=== PATIENT | female | born 2005 | race Caucasian/White ===

== ENCOUNTER 2024-05-12 15:15 | Emergency (ER) | payer BC, OTHER ==
[2024-05-12 16:39] VITALS: TEMP 97.2
--- NOTE | 2024-05-12 16:59 | ERPHSYRPT ---
- History of Present Illness Source: patient Exam Limitations: no limitations Patient Subjective Stated Complaint: pt here for numbness to left side of body while working out today started at 1030 and lasted about 60secs, then she states she had another episode at where her right side of face went numb followed by a headache, she is 19 weeks , and went to see becky today and was checked out Triage Nursing Assessment: pt alert and walked back , oriented, co headache, no injury, resp easy, skin w/d/p. abd soft, moves all ext well, no facial drooping. Timing/Duration: today Severity: mild Associated Symptoms: denies symptoms Allergies/Adverse Reactions: Penicillins Allergy (Verified 05/12/24 16:18) Home Medications: Pnv No.95/Ferrous Fum/Folic AC [ Caplet] 1 each PO DAILY 05/12/24 [History] Hx Tetanus, Diphtheria Vaccination/Date Given: Yes Hx Influenza Vaccination/Date Given: No Hx Pneumococcal Vaccination/Date Given: No Immunizations Up to Date: Yes Travel Risk - International Travel Have you traveled outside of the country in past 3 weeks: No - Emerging Infectious Disease Are you exhibiting symptoms associated with any current EIDs: No - Review of Systems Eyes: No Symptoms Ears, Nose, & Throat: No Symptoms Respiratory: No Symptoms Cardiac: No Symptoms Abdominal/Gastrointestinal: No Symptoms Genitourinary Symptoms: No Symptoms Musculoskeletal: No Symptoms Skin: No Symptoms Neurological: No Symptoms Psychological: No Symptoms Endocrine: No Symptoms Hematologic/Lymphatic: No Symptoms - Past Medical History Pertinent Past Medical History: No Neurological History: No Pertinent History ENT History: No Pertinent History Cardiac History: No Pertinent History Respiratory History: No Pertinent History Endocrine Medical History: No Pertinent History Musculoskeletal History: No Pertinent History GI Medical History: No Pertinent History History: No Pertinent History Psycho-Social History: No Pertinent History Female Reproductive Disorders: No Pertinent History - Past Surgical History Past Surgical History: No - Female History Hx Last Menstrual Period: january 03 Hx Now: Yes Gestational Age: 17 and one - Social History Smoking Status: Never smoker Exposure to second hand smoke: No Drug Use: none - Social Determinants of Health Will the patient participate in the screening: Yes Do you worry about a steady place to live?: No Do you have any problems with any of the following?: No known problems In the past 12 months,have you had to go without utilities?: No Transportation Issues: No Has anyone in your support network made you feel unsafe?: No Have you or anyone in your house had to go without enough: No - Nursing Vital Signs Nursing Vital Signs: Initial Vital Signs Pulse Rate 74 05/12/24 16:14 Respiratory Rate 19 05/12/24 16:14 Blood Pressure 111/69 05/12/24 16:14 O2 Sat by Pulse Oximetry 100 05/12/24 16:14 Pain Scale Pain Intensity 4 - Physical Exam General Appearance: no apparent distress Eye Exam: PERRL/EOMI Ears, Nose, Throat Exam: normal ENT inspection Neck Exam: normal inspection Respiratory Exam: normal breath sounds Cardiovascular Exam: regular rate/rhythm Gastrointestinal/Abdomen Exam: soft, normal bowel sounds Pelvic Exam: deferred Extremity Exam: normal inspection Neurologic Exam: alert, oriented x 3 SpO2: 100 Ordered Tests: Active Orders 24 hr Category Date Time Status CBC W DIFF Stat Lab 05/12/24 16:55 Completed CMP Stat Lab 05/12/24 17:04 Completed UA W/RFX UR CULTURE Stat Lab 05/12/24 16:00 Completed Medication Summary Generic Name Dose Route Start Last Admin Trade Name Freq PRN Reason Stop Dose Admin Sodium Chloride 1,000 mls @ 999 mls/hr 05/12/24 18:40 05/12/24 18:48 Sodium Chloride 0.9% 1000 Ml IV 05/12/24 19:40 999 mls/hr .Q1H1M STA Administration Metoclopramide HCl 10 mg 05/12/24 22:00 05/12/24 18:51 Metoclopramide Hcl 10 Mg/2 Ml Vial IV 06/11/24 21:59 10 mg ACHS CAITLIN Administration Discontinued Medications Generic Name Dose Route Start Last Admin Trade Name Freq PRN Reason Stop Dose Admin Sodium Chloride 1,000 mls @ 999 mls/hr 05/12/24 16:56 05/12/24 17:08 Sodium Chloride 0.9% 1000 Ml IV 05/12/24 17:56 999 mls/hr .Q1H1M STA Administration Sodium Chloride Confirm 05/12/24 17:04 Sodium Chloride 0.9% 1000 Ml Administered 05/12/24 17:05 Dose 1,000 mls @ ud .ROUTE .STK-MED ONE Sodium Chloride Confirm 05/12/24 18:46 Sodium Chloride 0.9% 1000 Ml Administered 05/12/24 18:47 Dose 1,000 mls @ .ROUTE .K-[facility] ONE Lab/Rad Data: Laboratory Result Diagrams 05/12/24 16:55 05/12/24 17:04 Laboratory Results 05/12/24 05/12/24 05/12/24 Range/Units 17:04 16:55 16:00 WBC 11.2 H (3.98-10.04) x10^3/uL RBC 3.65 L (3.93-5.22) x10^6/uL Hgb 11.4 (11.2-15.7) g/dL Hct 32.3 L (34.1-44.9) % MCV 88.5 (79.4-94.8) fL MCH 31.2 (25.6-32.2) pg MCHC 35.3 (32.2-35.5) g/dL RDW 13.4 (11.7-14.4) % Plt Count 194 (182-369) x10^3/uL MPV 9.6 (9.4-12.3) fL Gran % 84.2 H (34.0-71.1) % Immature Gran % (Auto) 0.4 (0.001-0.429) % Nucleat RBC Rel Count 0.0 (0.00-0.2) % Eos # (Auto) 0.02 L (0.04-0.36) x10^3/uL Immature Gran # (Auto) 0.04 H (0.001-0.031) x10^3u/L Absolute Lymphs (auto) 1.07 L (1.18-3.74) x10^3/uL Absolute Monos (auto) 0.58 (0.24-0.86) x10^3/uL Absolute Nucleated RBC 0.00 (0.00-0.012) x10^3u/L Lymphocytes % 9.6 L (19.3-51.7) % Monocytes % 5.2 (4.7-12.5) % Eosinophils % 0.2 L (0.7-5.8) % Basophils % 0.4 (0.1-1.2) % Absolute Granulocytes 9.44 H (1.56-6.13) x10^3/uL Basophils # 0.05 (0.01-0.08) x10^3/uL Sodium 134 L (135-145) mmol/L Potassium 3.5 (3.5-5.1) mmol/L Chloride 104 (98-107) mmol/L Carbon Dioxide 22 (22-30) mmol/L Anion Gap 12.3 (5-15) MEQ/L BUN 5 L (7-17) mg/dL Creatinine 0.59 (0.52-1.04) mg/dL Estimated GFR 132.2 ML/MIN Glucose 82 (74-106) mg/dL Calcium 8.9 (8.4-10.2) mg/dL Total Bilirubin 0.40 (0.2-1.3) mg/dL AST 30 (14-36) U/L ALT 22 (0-35) U/L Alkaline Phosphatase 67 (38-126) U/L Serum Total Protein 6.9 (6.3-8.2) g/dL Albumin 4.0 (3.5-5.0) g/dL Urine Color Yellow (Yellow) Urine Appearance Clear (Clear) Urine pH 6.5 (4.6-8.0) Ur Specific [place] 1.010 (1.005-1.030) Urine Protein Negative (Negative) Urine Glucose (UA) Negative (Negative) mg/dL Urine Ketones Negative (Negative) Urine Blood Negative (Negative) Urine Nitrite Negative (Negative) Urine Bilirubin Negative (Negative) Urine Urobilinogen 0.2 (0.2) mg/dL Ur Leukocyte Esterase Negative (Negative) U Hyaline Cast (Auto) NONE SEEN (0-2) /LPF Urine Microscopic RBC 0-2 (0-5) /HPF Urine Microscopic WBC 0-2 (0-5) /HPF Ur Epithelial Cells None Seen (None Seen) /HPF Urine Bacteria Rare A (None Seen) /HPF Urine Culture Reflexed NO (NO) Medical Desision Making - Discussion of managment Reviewed:: Need for additional workup Agreed on:: need for follow-up - Departure Clinical Impression: Dehydration, Nausea & vomiting Condition: Stable Critical Care Time: No Referrals: GABI ADAM [Primary Care Provider] - Follow up/PCP as directed Prescriptions: Ondansetron ODT 4 MG [Zofran Odt 4 mg] 4 mg PO Q6H PRN PRN #10 tablet PRN Reason: Vomiting
[2024-05-12] MEDS ORDERED: Sodium Chloride 0.9% 1000 ML 1,000 ML ONE ×2 (17:04→18:46)
[2024-05-12 17:07] LABS: Absolute Neutrophil Ct (ANC) 9.44 x10^3/uL (1.56-6.13); BASOPHIL % 0.4 % (0.1-1.2); Basophil (Absolute #) 0.05 x10^3/uL (0.01-0.08); Eosinophil % 0.2 % (0.7-5.8); Eosinophil (Absolute #) 0.02 x10^3/uL (0.04-0.36); Hematocrit 32.3 % (34.1-44.9); Hemoglobin 11.4 g/dL (11.2-15.7); IMMATURE GRAN # 0.04 x10^3u/L (0.001-0.031); IMMATURE GRAN % 0.4 % (0.001-0.429); Lymphocyte (Absolute #) 1.07 x10^3/uL (1.18-3.74); Lymphocytes % 9.6 % (19.3-51.7); Mean Cell Volume 88.5 fL (79.4-94.8); Mean Corpuscular Hemoglobin 31.2 pg (25.6-32.2); Mean Corpuscular Hgb Concent. 35.3 g/dL (32.2-35.5); Mean Platelet Volume 9.6 fL (9.4-12.3); Monocyte (Absolute #) 0.58 x10^3/uL (0.24-0.86); Monocytes % 5.2 % (4.7-12.5); Neutrophil % 84.2 % (34.0-71.1); Platelet Count 194 x10^3/uL (182-369); Red Blood Count 3.65 x10^6/uL (3.93-5.22); Red Cell Distribution Width 13.4 % (11.7-14.4); White Blood Count 11.2 x10^3/uL (3.98-10.04)
[2024-05-12] MEDS: Sodium Chloride 0.9% 1000 ML 1,000 ML IV STA ×2 (17:08→18:48)
[2024-05-12 17:10] LABS: Appearance Clear (Clear); Bacteria Rare /HPF (None Seen); Bilirubin Negative (Negative); Blood Negative (Negative); Epithelial Cells None Seen /HPF (None Seen); Glucose, Urine Negative (Negative); Hyaline Casts NONE SEEN /LPF (0-2); Ketones Negative (Negative); Leukocyte Esterase Negative (Negative); Nitrite Negative (Negative); Ph 6.5 (4.6-8.0); Protein,Urine Dip Negative (Negative); RBC 0-2 /HPF (0-5); Urobilinogen 0.2 mg/dL (0.2); WBC 0-2 /HPF (0-5)
[2024-05-12 17:23] LABS: ADD URINE CULTURE? NO (NO)
[2024-05-12 18:32] VITALS: BP 81/58; PULSE 80; RESP 13
[2024-05-12] MEDS ORDERED: Reglan 10 MG/2 ML ONE ×2 (18:45→18:49)
[2024-05-12 18:50] LABS: ANION GAP 12.3 MEQ/L (5-15); BILIRUBIN,TOTAL 0.4 mg/dL (0.2-1.3); Calcium 8.9 mg/dL (8.4-10.2); Creatinine 1 0.59 mg/dL (0.52-1.04); EST GLOMERULAR FILTRATION RATE 132.2 ML/MIN; Potassium 3.5 mmol/L (3.5-5.1); Total Protein 6.9 g/dL (6.3-8.2)
[2024-05-12] MEDS: Reglan 10 MG/2 ML IV SCH (18:51)
[2024-05-12 19:09] VITALS: O2SAT 100
== END 2024-05-12 19:25 | disposition left against medical advice (07) ==
LOC: ED 15:15
DX: E86.0 Dehydration (principal); R11.2 Nausea with vomiting, unspecified; R20.1 Hypoesthesia of skin; Z33.1 Pregnant state, incidental
CPT/HCPCS: 36000; 36415; 80053; 81001; 85025; 93005; 96360; 96361; 96374; 99284

== ENCOUNTER 2024-09-27 08:17 | Inpatient (IN) | payer BC, OTHER ==
[2024-09-27] MEDS ORDERED: Zofran 4 MG/2 ML VIAL IV PRN (09:01)
[2024-09-27 10:40] LABS: BASOPHIL % 0.4 % (0.1-1.2); Basophil (Absolute #) 0.05 x10^3/uL (0.01-0.08); Eosinophil % 0.3 % (0.7-5.8); Eosinophil (Absolute #) 0.04 x10^3/uL (0.04-0.36); Hematocrit 34.8 % (34.1-44.9); Hemoglobin 12.4 g/dL (11.2-15.7); IMMATURE GRAN % 0.8 % (0.001-0.429); Lymphocyte (Absolute #) 1.47 x10^3/uL (1.18-3.74); Lymphocytes % 11.9 % (19.3-51.7); Mean Cell Volume 88.5 fL (79.4-94.8); Mean Corpuscular Hemoglobin 31.6 pg (25.6-32.2); Mean Corpuscular Hgb Concent. 35.6 g/dL (32.2-35.5); Mean Platelet Volume 10.1 fL (9.4-12.3); Monocyte (Absolute #) 0.65 x10^3/uL (0.24-0.86); Monocytes % 5.3 % (4.7-12.5); Neutrophil % 81.3 % (34.0-71.1); Platelet Count 205 x10^3/uL (182-369); Red Blood Count 3.93 x10^6/uL (3.93-5.22); Red Cell Distribution Width 12.5 % (11.7-14.4); White Blood Count 12.3 x10^3/uL (3.98-10.04)
[2024-09-27 11:08] LABS: Amphetamine,Urine NEGATIVE (NEGATIVE); Barbiturate,Urine NEGATIVE (NEGATIVE); Benzodiazepine,Urine NEGATIVE (NEGATIVE); Cocaine,Urine NEGATIVE (NEGATIVE); Methadone,Urine NEGATIVE (NEGATIVE); Opiate,Urine NEGATIVE (NEGATIVE); PCP,Urine NEGATIVE (NEGATIVE); THC,Urine NEGATIVE (NEGATIVE)
[2024-09-27 11:36] LABS: ABO TYPING O; Antibody Screen NEGATIVE (NEGATIVE); RH TYPING POSITIVE
[2024-09-27] MEDS: Lactated Ringers 1,000 ML IV SCH (23:51)
[2024-09-28] MEDS: FENTANYL 2 MCG-BUPIV 0.125%-NS 250 ML Epidur 250 ML EPIDURAL SCH (07:25)
[2024-09-28] MEDS: PITOCIN 30 UNITS/ LR 500 ML 30 UNITS/500 ML PLAST..BAG IV SCH (07:36)
[2024-09-28] MEDS ORDERED: Ephedrine Sulfate 50 MG/ML IV PRN (08:00)
[2024-09-28] MEDS: TUCKS TP PRN (18:50)
[2024-09-28] MEDS: Dermoplast Spray TP PRN (18:50)
[2024-09-28] MEDS: MOTRIN 400 MG PO PRN (20:30)
[2024-09-29] MEDS: Docusate Sodium 100 MG PO SCH (00:10)
[2024-09-29] MEDS: PITOCIN 30 UNITS/ LR 500 ML 30 UNITS/500 ML PLAST..BAG IV SCH (01:04)
[2024-09-29] MEDS ORDERED: CORTISONE 1% CREAM ONE (04:23)
[2024-09-29] MEDS: CORTISONE 1% CREAM TP PRN (04:26)
[2024-09-29 04:29] LABS: Absolute Neutrophil Ct (ANC) 16.83 x10^3/uL (1.56-6.13); BASOPHIL % 0.4 % (0.1-1.2); Basophil (Absolute #) 0.08 x10^3/uL (0.01-0.08); Eosinophil % 0.6 % (0.7-5.8); Eosinophil (Absolute #) 0.13 x10^3/uL (0.04-0.36); Hematocrit 35.5 % (34.1-44.9); Hemoglobin 12.3 g/dL (11.2-15.7); IMMATURE GRAN # 0.16 x10^3u/L (0.001-0.031); IMMATURE GRAN % 0.7 % (0.001-0.429); Lymphocyte (Absolute #) 3.49 x10^3/uL (1.18-3.74); Lymphocytes % 15.9 % (19.3-51.7); Mean Cell Volume 90.6 fL (79.4-94.8); Mean Corpuscular Hemoglobin 31.4 pg (25.6-32.2); Mean Corpuscular Hgb Concent. 34.6 g/dL (32.2-35.5); Mean Platelet Volume 10.2 fL (9.4-12.3); Monocyte (Absolute #) 1.32 x10^3/uL (0.24-0.86); Neutrophil % 76.4 % (34.0-71.1); Platelet Count 192 x10^3/uL (182-369); Red Blood Count 3.92 x10^6/uL (3.93-5.22); Red Cell Distribution Width 12.9 % (11.7-14.4)
[2024-09-29] MEDS: FERREX 150 PO SCH (10:20)
--- NOTE | 2024-09-29 10:32 | PCM.NOTE ---
Date and Time: 09/29/24 1029 Subjective Assessment: ppd 1 sp pt resting in bed and doing well at this time able to ambulate and tolerate diet vss afebrile abd; soft uterus; firm lochia; mild hgb 12 a/p sp ppd 1 anticipate discharge tomorrow Objective Data Vital Signs: Vital Signs - 24 hr Temp Pulse Resp BP BP Pulse Ox 09/29/24 08:00 97.7 F 68 16 136/86 09/29/24 01:44 98.3 F 57 L 16 115/58 98 09/28/24 18:45 98.0 F 96 H 18 131/68 98 09/28/24 18:15 98.0 F 99 H 18 119/62 99 09/28/24 17:45 98.0 F 100 H 18 121/79 100 09/28/24 17:30 98.0 F 84 18 122/62 100 09/28/24 17:15 98.0 F 99 H 18 126/67 99 09/28/24 17:00 98.0 F 84 18 121/60 100 09/28/24 16:45 98.0 F 79 18 119/59 100 09/28/24 16:31 97.8 F 83 18 133/61 99 09/28/24 16:15 97.8 F 81 18 124/80 99 09/28/24 16:00 97.8 F 64 18 113/57 99 09/28/24 15:45 97.8 F 66 18 125/75 99 09/28/24 15:30 97.8 F 63 18 120/74 99 09/28/24 15:15 98.7 F 62 18 120/74 99 09/28/24 15:00 98.7 F 69 18 127/81 99 09/28/24 14:45 98.7 F 72 18 120/69 99 09/28/24 14:30 98.7 F 85 18 113/57 99 09/28/24 14:15 98.7 F 77 18 130/75 99 09/28/24 14:00 98.7 F 74 18 115/58 99 09/28/24 13:43 98.7 F 67 18 130/81 99 09/28/24 13:15 98.7 F 81 18 141/90 99 09/28/24 13:00 98.7 F 73 18 124/69 99 09/28/24 12:45 98.7 F 66 18 128/78 99 09/28/24 12:30 98.7 F 18 99 09/28/24 12:15 98.7 F 69 18 119/57 99 09/28/24 12:00 98.7 F 71 18 114/59 98 09/28/24 11:45 98.7 F 18 98 09/28/24 11:30 98.7 F 18 98 09/28/24 11:15 98.7 F 70 18 113/67 98 09/28/24 11:00 98.7 F 76 18 112/68 99 09/28/24 10:45 97.5 F 72 18 118/65 99 09/28/24 10:30 97.5 F 70 18 112/72 98 Pain Assessment - Last Documented Pain Intensity [Lower Anterior 0 /Posterior] Pain Intensity 2 Pain Scale Used 0-10 Pain Scale Intake and Output: Intake & Output 09/26/24 09/27/24 09/28/24 09/29/24 11:59 11:59 11:59 11:59 Intake Total 9000 1400 Output Total 1000 650 Balance 8000 750 Weight 81.647 kg Lab Results: Lab Results-Last 24 Hours 09/29/24 Range/Units 04:28 WBC 22.0 H (3.98-10.04) x10^3/uL RBC 3.92 L (3.93-5.22) x10^6/uL Hgb 12.3 (11.2-15.7) g/dL Hct 35.5 (34.1-44.9) % MCV 90.6 (79.4-94.8) fL MCH 31.4 (25.6-32.2) pg MCHC 34.6 (32.2-35.5) g/dL RDW 12.9 (11.7-14.4) % Plt Count 192 (182-369) x10^3/uL MPV 10.2 (9.4-12.3) fL Gran % 76.4 H (34.0-71.1) % Immature Gran % (Auto) 0.7 H (0.001-0.429) % Nucleat RBC Rel Count 0.0 (0.00-0.2) % Eos # (Auto) 0.13 (0.04-0.36) x10^3/uL Immature Gran # (Auto) 0.16 H (0.001-0.031) x10^3u/L Absolute Lymphs (auto) 3.49 (1.18-3.74) x10^3/uL Absolute Monos (auto) 1.32 H (0.24-0.86) x10^3/uL Absolute Nucleated RBC 0.00 (0.00-0.012) x10^3u/L Lymphocytes % 15.9 L (19.3-51.7) % Monocytes % 6.0 (4.7-12.5) % Eosinophils % 0.6 L (0.7-5.8) % Basophils % 0.4 (0.1-1.2) % Absolute Granulocytes 16.83 H (1.56-6.13) x10^3/uL Basophils # 0.08 (0.01-0.08) x10^3/uL Assessment/Plan (1) Vaginal delivery Current Visit: Yes Status: Acute Code(s): O80 - ENCOUNTER FOR FULL-TERM UNCOMPLICATED DELIVERY
[2024-09-29] MEDS: TYLENOL EXTRA STRENGTH 500 MG PO PRN (20:00)
[2024-09-29 21:08] VITALS: O2SAT 99
[2024-09-30 05:37] LABS: Absolute Neutrophil Ct (ANC) 10.11 x10^3/uL (1.56-6.13); BASOPHIL % 0.6 % (0.1-1.2); Basophil (Absolute #) 0.09 x10^3/uL (0.01-0.08); Eosinophil % 1.3 % (0.7-5.8); Eosinophil (Absolute #) 0.19 x10^3/uL (0.04-0.36); Hematocrit 31.3 % (34.1-44.9); Hemoglobin 10.8 g/dL (11.2-15.7); IMMATURE GRAN # 0.15 x10^3u/L (0.001-0.031); Lymphocytes % 18.8 % (19.3-51.7); Mean Corpuscular Hemoglobin 31.4 pg (25.6-32.2); Mean Corpuscular Hgb Concent. 34.5 g/dL (32.2-35.5); Mean Platelet Volume 10.8 fL (9.4-12.3); Monocyte (Absolute #) 1.11 x10^3/uL (0.24-0.86); Monocytes % 7.7 % (4.7-12.5); Neutrophil % 70.6 % (34.0-71.1); Platelet Count 179 x10^3/uL (182-369); Red Blood Count 3.44 x10^6/uL (3.93-5.22); Red Cell Distribution Width 13.1 % (11.7-14.4); White Blood Count 14.4 x10^3/uL (3.98-10.04)
[2024-09-30 07:14] LABS: RPR Non Reactive (Non Reactive)
--- NOTE | 2024-09-30 08:01 | PCM.NOTE ---
Date and Time: 09/30/24 0800 Subjective Assessment: ppd 2 sp pt resting in bed and doing well without complaints vss afebrile abd; soft uterus; firm lochia; mild hgb; 10 a/p sp ppd 2 dc home today fu office 3 wks Objective Data Vital Signs: Vital Signs - 24 hr Temp Pulse Resp BP Pulse Ox 09/30/24 02:00 97.5 F 73 18 125/83 99 09/29/24 20:00 98.0 F 77 18 126/66 99 09/29/24 14:00 97.7 F 76 16 135/82 Pain Assessment - Last Documented Pain Intensity [Lower Anterior 0 /Posterior] Pain Intensity 0 Pain Scale Used 0-10 Pain Scale Intake and Output: Intake & Output 09/27/24 09/28/24 09/29/24 09/30/24 11:59 11:59 11:59 11:59 Intake Total 9000 1400 500 Output Total 1000 650 Balance 8000 750 500 Weight 81.647 kg Lab Results: Lab Results-Last 24 Hours 09/27/24 09/30/24 Range/Units 10:30 04:15 WBC 14.4 H (3.98-10.04) x10^3/uL RBC 3.44 L (3.93-5.22) x10^6/uL Hgb 10.8 L (11.2-15.7) g/dL Hct 31.3 L (34.1-44.9) % MCV 91.0 (79.4-94.8) fL MCH 31.4 (25.6-32.2) pg MCHC 34.5 (32.2-35.5) g/dL RDW 13.1 (11.7-14.4) % Plt Count 179 L (182-369) x10^3/uL MPV 10.8 (9.4-12.3) fL Gran % 70.6 (34.0-71.1) % Immature Gran % (Auto) 1.0 H (0.001-0.429) % Nucleat RBC Rel Count 0.0 (0.00-0.2) % Eos # (Auto) 0.19 (0.04-0.36) x10^3/uL Immature Gran # (Auto) 0.15 H (0.001-0.031) x10^3u/L Absolute Lymphs (auto) 2.70 (1.18-3.74) x10^3/uL Absolute Monos (auto) 1.11 H (0.24-0.86) x10^3/uL Absolute Nucleated RBC 0.00 (0.00-0.012) x10^3u/L Lymphocytes % 18.8 L (19.3-51.7) % Monocytes % 7.7 (4.7-12.5) % Eosinophils % 1.3 (0.7-5.8) % Basophils % 0.6 (0.1-1.2) % Absolute Granulocytes 10.11 H (1.56-6.13) x10^3/uL Basophils # 0.09 H (0.01-0.08) x10^3/uL RPR Non Reactive (Non Reactive) Assessment/Plan (1) Vaginal delivery Current Visit: Yes Status: Acute Code(s): O80 - ENCOUNTER FOR FULL-TERM UNCOMPLICATED DELIVERY
--- NOTE | 2024-09-30 08:04 | PCM.DS ---
Discharge Summary Date of Admission: 09/27/24 09:40 Admitting Physician: JUAN JOHN DO Consults: Consults on Case 09/28/24 18:15 Navigation ONCE Primary Care Provider: GABI ADAM Allergies Allergies Penicillins Allergy (Verified 09/27/24 12:31) Hospital Summary - Hospital Course Hospital Course: pt admitted on sep 27 for cytotec induction at 39 wks gestation and delivered live baby boy without complication on sep 28. pt noted having a small periurethral tear during delivery and repaired with 2-0 chromic suture. during period did very well able to ambulate and tolerate diet. stable hgb at 10 today and at this time stable for discharge. all questions answered to her satisfaction and advised to fu in office in 3 wks. - Vitals & Intake/Output Vital Signs: Vital Signs Temperature 97.5 F 09/30/24 02:00 Pulse Rate 73 09/30/24 02:00 Respiratory Rate 18 09/30/24 02:00 Blood Pressure 125/83 09/30/24 02:00 O2 Sat by Pulse Oximetry 99 09/30/24 02:00 Intake & Output: Intake & Output 09/27/24 09/28/24 09/29/24 09/30/24 11:59 11:59 11:59 11:59 Intake Total 9000 1400 500 Output Total 1000 650 Balance 8000 750 500 Weight 81.647 kg - Lab Result Diagrams: 09/30/24 04:15 Lab Results-Last 24 Hrs: Lab Results-Last 24 Hours 09/27/24 09/30/24 Range/Units 10:30 04:15 WBC 14.4 H (3.98-10.04) x10^3/uL RBC 3.44 L (3.93-5.22) x10^6/uL Hgb 10.8 L (11.2-15.7) g/dL Hct 31.3 L (34.1-44.9) % MCV 91.0 (79.4-94.8) fL MCH 31.4 (25.6-32.2) pg MCHC 34.5 (32.2-35.5) g/dL RDW 13.1 (11.7-14.4) % Plt Count 179 L (182-369) x10^3/uL MPV 10.8 (9.4-12.3) fL Gran % 70.6 (34.0-71.1) % Immature Gran % (Auto) 1.0 H (0.001-0.429) % Nucleat RBC Rel Count 0.0 (0.00-0.2) % Eos # (Auto) 0.19 (0.04-0.36) x10^3/uL Immature Gran # (Auto) 0.15 H (0.001-0.031) x10^3u/L Absolute Lymphs (auto) 2.70 (1.18-3.74) x10^3/uL Absolute Monos (auto) 1.11 H (0.24-0.86) x10^3/uL Absolute Nucleated RBC 0.00 (0.00-0.012) x10^3u/L Lymphocytes % 18.8 L (19.3-51.7) % Monocytes % 7.7 (4.7-12.5) % Eosinophils % 1.3 (0.7-5.8) % Basophils % 0.6 (0.1-1.2) % Absolute Granulocytes 10.11 H (1.56-6.13) x10^3/uL Basophils # 0.09 H (0.01-0.08) x10^3/uL RPR Non Reactive (Non Reactive) Final Diagnosis/Problem List - Final Discharge Diagnosis/Problem (1) Vaginal delivery Current Visit: Yes Status: Acute Code(s): O80 - ENCOUNTER FOR FULL-TERM UNCOMPLICATED DELIVERY - Discharge Disposition: Home, Self-Care Condition: Stable Prescriptions: No Action Pnv No.95/Ferrous Fum/Folic AC [ Caplet] 1 each PO DAILY Ondansetron ODT 4 MG [Zofran Odt 4 mg] 4 mg PO Q6H PRN PRN #10 tablet PRN Reason: Vomiting Follow up with: GABI ADAM [Primary Care Provider] - JUAN JOHN DO [ACTIVE STAFF] - 3 weeks
[2024-09-30] MEDS: Adacel Vial IM ONE (08:45)
[2024-09-30 09:41] VITALS: BP 128/74; PULSE 94; RESP 14; TEMP 98.2
== END 2024-09-30 12:30 | disposition home or self-care (01) | DRG 807 ==
LOC: OB 09:40
PROVIDERS: ADMIT Obstetrics & Gynecology; ATTEND Obstetrics & Gynecology
PROC: 10E0XZZ Delivery of Products of Conception, External Approach (ICD-10-PCS; principal; 2024-09-28)
PROC: 0UQMXZZ Repair Vulva, External Approach (ICD-10-PCS; 2024-09-28)
DX: O71.82 Other specified trauma to perineum and vulva (principal); Z37.0 Single live birth; Z3A.39 39 weeks gestation of pregnancy
CPT/HCPCS: 36415; 59400; 80307; 85025; 86592; 86850; 86900; 86901; 90715; J2590; A9270-GY

== ENCOUNTER 2025-01-11 10:53 | Emergency (ER) | payer BC, OTHER ==
[2025-01-11 11:05] VITALS: TEMP 97.1
--- NOTE | 2025-01-11 11:22 | ERPHSYRPT ---
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 Patient denies any fever chills blood in the stool or urine abdominal distention shortness of breath headache. Patient is presently on her menstrual period. Patient has a given of 3 months ago. Timing/Duration: today Activities at Onset: none Quality: cramping Abdominal Pain Onset Location: epigastric Pain Radiation: no radiation Severity of Pain-Max: moderate Severity of Pain-Current: mild Modifying Factors: Improves With: nothing Associated Symptoms: denies symptoms Previous symptoms: no prior history Body Map: 1 - pain Allergies/Adverse Reactions: Penicillins Allergy (Verified 01/11/25 11:05) Home Medications: No Reportable Medications [No Reported Medications] 01/11/25 [History] Hx Tetanus, Diphtheria Vaccination/Date Given: Yes Hx Influenza Vaccination/Date Given: No Hx Pneumococcal Vaccination/Date Given: No Travel Risk - International Travel Have you traveled outside of the country in past 3 weeks: No - Emerging Infectious Disease Are you exhibiting symptoms associated with any current EIDs: Yes Symptoms: Abdominal Pain, Vomitting - Review of Systems Constitutional: No Fever, No Chills Eyes: No Symptoms Ears, Nose, & Throat: No Symptoms Respiratory: No Cough, No Dyspnea Cardiac: No Chest Pain, No Edema, No Syncope Abdominal/Gastrointestinal: Abdominal Pain, No Nausea, No Vomiting, No Diarrhea Genitourinary Symptoms: Vaginal Bleeding (presently on her menstrual period), No Dysuria, No Musculoskeletal: No Back Pain, No Neck Pain Skin: No Rash Neurological: No Dizziness, No Focal Weakness, No Sensory Changes Psychological: No Symptoms Endocrine: No Symptoms All Other Systems: Reviewed and Negative - Past Medical History Pertinent Past Medical History: No Neurological History: No Pertinent History ENT History: No Pertinent History Cardiac History: No Pertinent History Respiratory History: No Pertinent History Endocrine Medical History: No Pertinent History Musculoskeletal History: No Pertinent History GI Medical History: No Pertinent History History: No Pertinent History Psycho-Social History: No Pertinent History Female Reproductive Disorders: No Pertinent History - Past Surgical History Past Surgical History: No Neuro Surgical History: No Pertinent History Cardiac: No Pertinent History Respiratory: No Pertinent History Gastrointestinal: No Pertinent History Genitourinary: No Pertinent History Musculoskeletal: No Pertinent History Female Surgical History: No Pertinent History - Female History Hx Last Menstrual Period: january 03 Hx Now: No - Social History Smoking Status: Never smoker Exposure to second hand smoke: No Drug Use: none - Social Determinants of Health Will the patient participate in the screening: Yes Do you worry about a steady place to live?: No Do you have any problems with any of the following?: No known problems In the past 12 months,have you had to go without utilities?: No Transportation Issues: No Has anyone in your support network made you feel unsafe?: No Have you or anyone in your house had to go w/o enough food: No - Nursing Vital Signs Nursing Vital Signs: Initial Vital Signs Temperature 97.1 F 01/11/25 10:57 Pulse Rate 81 01/11/25 10:57 Blood Pressure 118/68 01/11/25 10:57 O2 Sat by Pulse Oximetry 100 01/11/25 10:57 Pain Scale Pain Intensity 7 - Physical Exam General Appearance: no apparent distress, alert Eye Exam: PERRL/EOMI, eyes nml inspection Ears, Nose, Throat Exam: normal ENT inspection, pharynx normal, moist mucous membranes Neck Exam: normal inspection, non-tender, supple, full range of motion Respiratory Exam: normal breath sounds, lungs clear, No respiratory distress Cardiovascular Exam: regular rate/rhythm, normal heart sounds Gastrointestinal/Abdomen Exam: soft, normal bowel sounds, No tenderness, No distention, No mass, No guarding, No rebound Pelvic Exam: not done Rectal Exam: deferred Back Exam: normal inspection, normal range of motion, No CVA tenderness, No vertebral tenderness Extremity Exam: normal inspection, normal range of motion, pelvis stable Neurologic Exam: alert, oriented x 3, cooperative, normal mood/affect, nml cerebellar function, sensation nml, No motor deficits Skin Exam: normal color, warm, dry SpO2 Interpretation: normal SpO2: 100 O2 Delivery: Room Air - Course Nursing assessment & vital signs reviewed: Yes Ordered Tests: Active Orders 24 hr Category Date Time Status AMYLASE Stat Lab 01/11/25 11:42 Completed CBC W DIFF Stat Lab 01/11/25 11:42 Completed CMP Stat Lab 01/11/25 11:42 Completed HCG QUALITATIVE, SERUM Stat Lab 01/11/25 11:42 Completed LIPASE Stat Lab 01/11/25 11:42 Completed UA W/RFX UR CULTURE Stat Lab 01/11/25 11:42 Completed Urine Triage Profile Stat Lab 01/11/25 11:42 Completed Lab/Rad Data: Laboratory Result Diagrams 01/11/25 11:42 01/11/25 11:42 Laboratory Results 01/11/25 01/11/25 01/11/25 Range/Units 11:42 11:42 11:42 WBC 6.5 (3.98-10.04) x10^3/uL RBC 4.32 (3.93-5.22) x10^6/uL Hgb 12.8 (11.2-15.7) g/dL Hct 37.2 (34.1-44.9) % MCV 86.1 (79.4-94.8) fL MCH 29.6 (25.6-32.2) pg MCHC 34.4 (32.2-35.5) g/dL RDW 12.2 (11.7-14.4) % Plt Count 194 (182-369) x10^3/uL MPV 9.6 (9.4-12.3) fL Gran % 80.4 H (34.0-71.1) % Immature Gran % (Auto) 0.3 (0.001-0.429) % Nucleat RBC Rel Count 0.0 (0.00-0.2) % Eos # (Auto) 0.15 (0.04-0.36) x10^3/uL Immature Gran # (Auto) 0.02 (0.001-0.031) x10^3u/L Absolute Lymphs (auto) 0.61 L (1.18-3.74) x10^3/uL Absolute Monos (auto) 0.44 (0.24-0.86) x10^3/uL Absolute Nucleated RBC 0.00 (0.00-0.012) x10^3u/L Lymphocytes % 9.4 L (19.3-51.7) % Monocytes % 6.8 (4.7-12.5) % Eosinophils % 2.3 (0.7-5.8) % Basophils % 0.8 (0.1-1.2) % Absolute Granulocytes 5.19 (1.56-6.13) x10^3/uL Basophils # 0.05 (0.01-0.08) x10^3/uL Sodium 138 (135-145) mmol/L Potassium 3.9 (3.5-5.1) mmol/L Chloride 106 (98-107) mmol/L Carbon Dioxide 21 L (22-30) mmol/L Anion Gap 14.9 (5-15) MEQ/L BUN 10 (7-17) mg/dL Creatinine 0.77 (0.52-1.04) mg/dL Estimated GFR 112.5 ML/MIN Glucose 90 (74-106) mg/dL Calcium 8.7 (8.4-10.2) mg/dL Total Bilirubin 0.60 (0.2-1.3) mg/dL AST 31 (14-36) U/L ALT 17 (0-35) U/L Alkaline Phosphatase 76 (38-126) U/L Serum Total Protein 6.7 (6.3-8.2) g/dL Albumin 4.2 (3.5-5.0) g/dL Amylase 75 (30-110) U/L Lipase 207 (23-300) U/L Serum HCG, Qual NEGATIVE (NEGATIVE) Urine Color (Yellow) Urine Appearance (Clear) Urine pH (4.6-8.0) Ur Specific [place] (1.005-1.030) Urine Protein (Negative) Urine Glucose (UA) (Negative) mg/dL Urine Ketones (Negative) Urine Blood (Negative) Urine Nitrite (Negative) Urine Bilirubin (Negative) Urine Urobilinogen (0.2) mg/dL Ur Leukocyte Esterase (Negative) U Hyaline Cast (Auto) (0-2) /LPF Urine Microscopic RBC (0-5) /HPF Urine Microscopic WBC (0-5) /HPF Ur Epithelial Cells (None Seen) /HPF Urine Bacteria (None Seen) /HPF Urine Culture Reflexed (NO) Urine Opiates Level (NEGATIVE) Ur Methadone (NEGATIVE) Urine Barbiturates (NEGATIVE) Ur Phencyclidine (PCP) (NEGATIVE) Urine Amphetamine (NEGATIVE) U Benzodiazepine Level (NEGATIVE) Urine Cocaine (NEGATIVE) Urine Marijuana (THC) (NEGATIVE) 01/11/25 01/11/25 Range/Units 11:42 11:42 WBC (3.98-10.04) x10^3/uL RBC (3.93-5.22) x10^6/uL Hgb (11.2-15.7) g/dL Hct (34.1-44.9) % MCV (79.4-94.8) fL MCH (25.6-32.2) pg MCHC (32.2-35.5) g/dL RDW (11.7-14.4) % Plt Count (182-369) x10^3/uL MPV (9.4-12.3) fL Gran % (34.0-71.1) % Immature Gran % (Auto) (0.001-0.429) % Nucleat RBC Rel Count (0.00-0.2) % Eos # (Auto) (0.04-0.36) x10^3/uL Immature Gran # (Auto) (0.001-0.031) x10^3u/L Absolute Lymphs (auto) (1.18-3.74) x10^3/uL Absolute Monos (auto) (0.24-0.86) x10^3/uL Absolute Nucleated RBC (0.00-0.012) x10^3u/L Lymphocytes % (19.3-51.7) % Monocytes % (4.7-12.5) % Eosinophils % (0.7-5.8) % Basophils % (0.1-1.2) % Absolute Granulocytes (1.56-6.13) x10^3/uL Basophils # (0.01-0.08) x10^3/uL Sodium (135-145) mmol/L Potassium (3.5-5.1) mmol/L Chloride (98-107) mmol/L Carbon Dioxide (22-30) mmol/L Anion Gap (5-15) MEQ/L BUN (7-17) mg/dL Creatinine (0.52-1.04) mg/dL Estimated GFR ML/MIN Glucose (74-106) mg/dL Calcium (8.4-10.2) mg/dL Total Bilirubin (0.2-1.3) mg/dL AST (14-36) U/L ALT (0-35) U/L Alkaline Phosphatase (38-126) U/L Serum Total Protein (6.3-8.2) g/dL Albumin (3.5-5.0) g/dL Amylase (30-110) U/L Lipase (23-300) U/L Serum HCG, Qual (NEGATIVE) Urine Color Yellow (Yellow) Urine Appearance Clear (Clear) Urine pH 6.0 (4.6-8.0) Ur Specific [place] 1.010 (1.005-1.030) Urine Protein Negative (Negative) Urine Glucose (UA) Negative (Negative) mg/dL Urine Ketones Negative (Negative) Urine Blood Trace (Negative) Urine Nitrite Negative (Negative) Urine Bilirubin Negative (Negative) Urine Urobilinogen 1.0 A (0.2) mg/dL Ur Leukocyte Esterase Negative (Negative) U Hyaline Cast (Auto) NONE SEEN (0-2) /LPF Urine Microscopic RBC 0-2 (0-5) /HPF Urine Microscopic WBC 0-2 (0-5) /HPF Ur Epithelial Cells None Seen (None Seen) /HPF Urine Bacteria None Seen (None Seen) /HPF Urine Culture Reflexed NO (NO) Urine Opiates Level NEGATIVE (NEGATIVE) Ur Methadone NEGATIVE (NEGATIVE) Urine Barbiturates NEGATIVE (NEGATIVE) Ur Phencyclidine (PCP) NEGATIVE (NEGATIVE) Urine Amphetamine NEGATIVE (NEGATIVE) U Benzodiazepine Level NEGATIVE (NEGATIVE) Urine Cocaine NEGATIVE (NEGATIVE) Urine Marijuana (THC) NEGATIVE (NEGATIVE) - Progress Progress: improved Counseled pt/family regarding: lab results, diagnosis, need for follow-up Medical Desision Making - Independent Historian Additional History obtained from: Family - Diagnostic Testing Diagnostic test were ordered, analyzed, and reviewed by me: Yes - Risk of complications Minimal Risk: Minimal risk of morbidity - Departure Departure Disposition: Home Clinical Impression: Epigastric abdominal pain Condition: Stable Critical Care Time: No Referrals: GABI ADAM [Primary Care Provider, [facility]] - Follow up/PCP as directed Instructions: Dyspepsia (DC), Severe Abdominal Pain, Adult (DC) Additional Instructions: According to your symptoms and the lab reports it appears that you have some gastric dyspepsia which is upset stomach probably due to some type of food you ate. If symptoms come back take some Pepcid AC 1 tablet twice a day for couple 3 days and follow-up with your primary care physician for further investigation including gallbladder ultrasound and upper endoscopy Discharge/Care Plan AUGUST AHUJA was seen on 01/11/25 in the Emergency Room. The patient was counseled regarding Diagnosis,Lab results, Imaging studies, need for follow up and when to return to the Emergency Room. Prescriptions given: Discharge Note I have spoken with the patient and/or caregivers. I have explained the patient's condition, diagnosis and treatment plan based on the information available to me at this time. I have answered the patient's and/or caregiver's questions and addressed any concerns. The patient and/or caregivers have as good understanding of the patient's diagnosis, condition and treatment plan as can be expected at this point. The vital signs have been stable. The patient's condition is stable and appropriate for discharge from the emergency department. The patient will pursue further outpatient evaluation with the primary care physician or other designated or consulting physician as outlined in the discharge instructions. The patient and/or caregivers are agreeable to this plan of care and follow-up instructions have been explained in detail. The patient and/or caregivers have received these instruction. The patient/and or caregivers are aware that any significant change in condition or worsening of symptoms should prompt an immediate return to this or the closest emergency department or call 911. AUGUST AHUJA was seen on 01/11/25 n the Emergency Room. At that time you were treated for an emergent condition, during your visit Laboratory, Radiology and/or other procedures may have been ordered. It is very important that you follow-up with your Primary Care Physician GABI ADAM within the next 24-48 hours to review your Emergency Room visit and the final results of testing that was ordered. Some test results such as Urine Cultures, Blood Cultures, and other cultures if ordered will not be finalized for 24-48 hours. If you do not have a Primary Care Provider please call the medical records department at [phone] ext [phone] to obtain a copy of your results or you may sign into our patient portal to obtain these results by visiting us @ [email or web address] and completing the following steps: 1. Click on the Patient Portal link 2. Click the Patient Self Enrollment Link to complete the enrollment form and entering your 3. Once the enrollment form is completed you will receive an email with a temporary ID and password at the email address you provided. 4. Next choose a user name and password. Your user name must be at least 4 characters long and your password must be at least 4 characters long. 5. Choose a security question from the list and provide your answer to the question. If you already have signed into the Health Portal you may access your Health Care Information 09/04 by the following steps: 1. Login to our website @ [email or web address] 2. Enter your original user name and password. FAQS The [facility] Health Portal is an online tool that contains your Lab Results, Radiology Reports, Visit History, Discharge Instructions and Health Summary Lab and Radiology Results will not be available for 72 hours on the portal. The Portal is a secure site, passwords are encryted and URLs are re-written so they cannot be copied and pasted. You and authorized family members are the only ones who can access your Portal. Also there is a timeout feature that protects your information if you leave the Portal page open. If you have technical difficulty please use the Contact Us link on the page this will allow you to submit any questions you have regarding the Portal or you may contact the Medical Record Department at [phone].
[2025-01-11 11:43] LABS: Absolute Neutrophil Ct (ANC) 5.19 x10^3/uL (1.56-6.13); BASOPHIL % 0.8 % (0.1-1.2); Basophil (Absolute #) 0.05 x10^3/uL (0.01-0.08); Eosinophil % 2.3 % (0.7-5.8); Eosinophil (Absolute #) 0.15 x10^3/uL (0.04-0.36); Hematocrit 37.2 % (34.1-44.9); Hemoglobin 12.8 g/dL (11.2-15.7); IMMATURE GRAN # 0.02 x10^3u/L (0.001-0.031); IMMATURE GRAN % 0.3 % (0.001-0.429); Lymphocyte (Absolute #) 0.61 x10^3/uL (1.18-3.74); Lymphocytes % 9.4 % (19.3-51.7); Mean Cell Volume 86.1 fL (79.4-94.8); Mean Corpuscular Hemoglobin 29.6 pg (25.6-32.2); Mean Corpuscular Hgb Concent. 34.4 g/dL (32.2-35.5); Mean Platelet Volume 9.6 fL (9.4-12.3); Monocyte (Absolute #) 0.44 x10^3/uL (0.24-0.86); Monocytes % 6.8 % (4.7-12.5); Neutrophil % 80.4 % (34.0-71.1); Platelet Count 194 x10^3/uL (182-369); Red Blood Count 4.32 x10^6/uL (3.93-5.22); Red Cell Distribution Width 12.2 % (11.7-14.4); White Blood Count 6.5 x10^3/uL (3.98-10.04)
[2025-01-11 11:53] LABS: Appearance Clear (Clear); Bacteria None Seen /HPF (None Seen); Bilirubin Negative (Negative); Blood Trace (Negative); Epithelial Cells None Seen /HPF (None Seen); Glucose, Urine Negative (Negative); Hyaline Casts NONE SEEN /LPF (0-2); Ketones Negative (Negative); Leukocyte Esterase Negative (Negative); Nitrite Negative (Negative); Protein,Urine Dip Negative (Negative); RBC 0-2 /HPF (0-5); WBC 0-2 /HPF (0-5)
[2025-01-11 11:56] LABS: ALBUMIN 4.2 g/dL (3.5-5.0); ANION GAP 14.9 MEQ/L (5-15); BILIRUBIN,TOTAL 0.6 mg/dL (0.2-1.3); Calcium 8.7 mg/dL (8.4-10.2); Creatinine 1 0.77 mg/dL (0.52-1.04); EST GLOMERULAR FILTRATION RATE 112.5 ML/MIN; Potassium 3.9 mmol/L (3.5-5.1); Total Protein 6.7 g/dL (6.3-8.2)
[2025-01-11 11:57] LABS: HCG SERUM TEST NEGATIVE (NEGATIVE)
[2025-01-11 12:04] LABS: Amphetamine,Urine NEGATIVE (NEGATIVE); Barbiturate,Urine NEGATIVE (NEGATIVE); Benzodiazepine,Urine NEGATIVE (NEGATIVE); Cocaine,Urine NEGATIVE (NEGATIVE); Methadone,Urine NEGATIVE (NEGATIVE); Opiate,Urine NEGATIVE (NEGATIVE); PCP,Urine NEGATIVE (NEGATIVE); THC,Urine NEGATIVE (NEGATIVE)
[2025-01-11 12:10] VITALS: BP 105/63; PULSE 82; RESP 6
[2025-01-11 12:13] VITALS: O2SAT 100
== END 2025-01-11 12:18 | disposition home or self-care (01) ==
LOC: ED 10:53
DX: R10.13 Epigastric pain (principal); R11.0 Nausea
CPT/HCPCS: 36415; 80053; 80307; 81001; 82150; 83690; 84703; 85025; 99282; 99283